=== PATIENT | male | born 1980 | race Caucasian/White ===

== ENCOUNTER 2017-06-25 06:55 | Emergency (ER) | payer MEDICARE, MEDICAID ==
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
[2017-06-25 08:29] LABS: ABSOLUTE BASOPHILS # (AUTO) 0.1 10^3/uL (0.0-0.2); ABSOLUTE EOSINOPHILS # (AUTO) 0.2 10^3/uL (0.0-0.6); ABSOLUTE LYMPHOCYTES (AUTO) 2.2 10^3/uL (0.5-4.7); ABSOLUTE MONOCYTES (AUTO) 0.5 10^3/uL (0.1-1.4); ABSOLUTE NEUT (AUTO) 3.8 10^3/uL (1.7-8.2); BASOPHILS % (AUTO) 0.8 % (0-2); EOSINOPHILS % (AUTO) 3.2 % (0-6); HEMATOCRIT 42.1 % (37.9-51.0); HEMOGLOBIN 14.4 g/dL (13.5-17.0); HGB HCT DIFFERENCE 1.1; LYMPHOCYTES % (AUTO) 32.8 % (13-45); MEAN CORPUSCULAR HEMOGLOBIN 27.6 pg (27.0-33.4); MEAN CORPUSCULAR HGB CONC 34.1 g/dL (32.0-36.0); MEAN CORPUSCULAR VOLUME 81 fl (80-97); RED BLOOD COUNT 5.21 10^6/uL (4.35-5.55); RED CELL DISTRIBUTION WIDTH 14.5 % (11.5-14.0); SEGMENTED NEUTROPHILS % (AUTO) 56.2 % (42-78); WHITE BLOOD COUNT 6.8 10^3/uL (4.0-10.5)
--- NOTE | 2017-06-25 08:44 | EKG REPORT ---
SEVERITY:- NORMAL ECG - SINUS RHYTHM : Confirmed by: Darell Beavers 25-Jun-2017 19:13:27
[2017-06-25 08:46] LABS: ALANINE AMINOTRANSFERASE 32 U/L (21-72); ALBUMIN 3.8 g/dL (3.5-5.0); ALKALINE PHOSPHATASE 82 U/L (38-126); ANION GAP 10 (5-19); ASPARTATE AMINO TRANSFERASE 26 U/L (17-59); BILIRUBIN,DIRECT 0.3 mg/dL (0.0-0.4); BILIRUBIN,TOTAL 0.3 mg/dL (0.2-1.3); BLOOD UREA NITROGEN 10 mg/dL (7-20); CALCIUM 9.2 mg/dL (8.4-10.2); CARBON DIOXIDE 25 mmol/L (22-30); CHLORIDE 107 mmol/L (98-107); CREATININE RESULT 1.26 mg/dL (0.52-1.25); GLUCOSE 91 mg/dL (75-110); POTASSIUM 4.1 mmol/L (3.6-5.0); SODIUM 141.9 mmol/L (137-145); TOTAL PROTEIN 6.2 g/dL (6.3-8.2)
[2017-06-25 08:55] LABS: ALCOHOL < 10 mg/dL (NONE DETECTED); VALPROIC ACID < 10.0 ug/mL (50.0-120.0)
[2017-06-25 09:02] LABS: APPEARANCE,URINE SLIGHTLY-CLOUDY; BILIRUBIN,URINE NEGATIVE (NEGATIVE); GLUCOSE, URINE NEGATIVE (NEGATIVE); KETONES,URINE TRACE mg/dL (NEGATIVE); LEUKOCYTE ESTERASE,URINE NEGATIVE (NEGATIVE); NITRITE,URINE NEGATIVE (NEGATIVE); PROTEIN,URINE 30 mg/dL (NEGATIVE); URINE SPECIFIC GRAVITY 1.032
[2017-06-25 09:09] LABS: BACTERIA,URINE 2+ /HPF; WBC,URINE RARE /HPF
[2017-06-25 09:11] LABS: URINE BARBITURATES SCREEN NEGATIVE; URINE METHADONE SCREEN NEGATIVE; URINE OPIATES LOW NEGATIVE; URINE PHENCYCLIDINE SCREEN NEGATIVE
[2017-06-25] MEDS ORDERED: OLANZAPINE 5 MG TABLET PO SCH (18:15)
[2017-06-25] MEDS ORDERED: BENZTROPINE MESYLATE 1 MG TABLET PO SCH (18:15)
--- NOTE | 2017-06-26 10:29 | ER Document Report ---
Doctor's Note Notes: 06/26/17 10:28 Patient has been seen and evaluated resting comfortably no acute distress. Laboratory values previous provider note and vital signs have been evaluated. Patient otherwise looks to be stable for disposition/transfer.
[2017-06-26] MEDS ORDERED: BENZTROPINE MESYLATE 1 MG TABLET PO ONE (11:30)
[2017-06-26] MEDS ORDERED: OLANZAPINE INJ/PF 10 MG SDV IM ONE (11:58)
[2017-06-26] MEDS ORDERED: DIPHENHYDRAMINE HCL 50 MG/ML VIAL IM ONE (11:58)
[2017-06-26 16:26] VITALS: BP 129/81
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
--- NOTE | 2017-06-26 18:50 | PSYCHOLOGICAL NOTE ---
Psych Note - Psych Note Psych Note: Patient is a 37 year old male in the ED on IVC for history of Bipolar and Schizophrenia, having been off medications for a year or longer, SI/HI, delusional thinking, and A/V hallucinations. Overnight nurse stated patient was calm and cooperative. Patient stated "I am pretty good" when asked how he was doing. He further stated "I am just relaxing." When this clinician went to inform patient about IVC status he politely stated "I don't feel like talking I' m just trying to lay here." A couple hours later patient walked out of his room , threatened another patient, was verbally aggressive and body language suggested he was angry per attending nurse. Diagnosis: 296.80 (F32.9) Unspecified Bipolar Related Disorder by History 298.9 (F29) Unspecified Schizophrenia Spectrum and Other Psychotic Disorder by History Institutionalized R/O 309.9 (F43.9) Unspecified Trauma and Stressor Related Disorder Impression/Plan: Recommendation to maintain IVC given patient's labile mood and aggression. Medication regimen was just started last evening. Coordinated care with [facility]. Consulted with Dr. Russell regarding the management and care of patient. ED Physician in agreement with recommendation.
[2017-06-27] MEDS ORDERED: BENZTROPINE MESYLATE 1 MG TABLET PO SCH (10:00)
== END 2017-06-26 16:20 ==
LOC: EDBD 06:55 → ER 06:55
DX: F20.9 Schizophrenia, unspecified (principal); R45.850 Homicidal ideations; R45.851 Suicidal ideations; E66.01 Morbid (severe) obesity due to excess calories; F31.9 Bipolar disorder, unspecified; F17.210 Nicotine dependence, cigarettes, uncomplicated
CPT/HCPCS: 93005; 99285; 96372; 36415; 80307 ×4; 85025; 80053; 81001; 80164; 93010; A9270 ×3; J1200

== ENCOUNTER 2017-10-26 19:09 | Emergency (ER) | payer MEDICARE, MEDICAID ==
[2017-10-26] MEDS ORDERED: OLANZAPINE 5 MG TABLET PO ONE (19:22)
[2017-10-26 20:39] LABS: ABSOLUTE EOSINOPHILS # (AUTO) 0.2 10^3/uL (0.0-0.6); ABSOLUTE LYMPHOCYTES (AUTO) 2.4 10^3/uL (0.5-4.7); ABSOLUTE MONOCYTES (AUTO) 0.4 10^3/uL (0.1-1.4); BASOPHILS % (AUTO) 0.7 % (0-2); EOSINOPHILS % (AUTO) 3.1 % (0-6); HEMATOCRIT 43.8 % (37.9-51.0); HEMOGLOBIN 14.6 g/dL (13.5-17.0); LYMPHOCYTES % (AUTO) 33.8 % (13-45); MEAN CORPUSCULAR HEMOGLOBIN 27.2 pg (27.0-33.4); MEAN CORPUSCULAR HGB CONC 33.3 g/dL (32.0-36.0); MEAN CORPUSCULAR VOLUME 82 fl (80-97); MONOCYTES % (AUTO) 5.5 % (3-13); PLATELET COUNT 297 10^3/uL (150-450); RED BLOOD COUNT 5.36 10^6/uL (4.35-5.55); RED CELL DISTRIBUTION WIDTH 14.4 % (11.5-14.0); SEGMENTED NEUTROPHILS % (AUTO) 56.9 % (42-78); TOTAL CELLS COUNTED % (AUTO) 100 %
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
[2017-10-26 20:44] LABS: APPEARANCE,URINE CLEAR; BILIRUBIN,URINE NEGATIVE (NEGATIVE); COLOR,URINE YELLOW; GLUCOSE, URINE NEGATIVE (NEGATIVE); KETONES,URINE NEGATIVE (NEGATIVE); LEUKOCYTE ESTERASE,URINE NEGATIVE (NEGATIVE); NITRITE,URINE NEGATIVE (NEGATIVE); PROTEIN,URINE NEGATIVE (NEGATIVE); URINE SPECIFIC GRAVITY 1.018; UROBILINOGEN,URINE NEGATIVE mg/dL (<2.0)
[2017-10-26 21:00] LABS: ALANINE AMINOTRANSFERASE 35 U/L (21-72); ALBUMIN 4.4 g/dL (3.5-5.0); ALCOHOL 77 mg/dL (NONE DETECTED); ALKALINE PHOSPHATASE 59 U/L (38-126); ANION GAP 12 (5-19); ASPARTATE AMINO TRANSFERASE 55 U/L (17-59); BILIRUBIN,DIRECT 0.2 mg/dL (0.0-0.4); BILIRUBIN,TOTAL 0.2 mg/dL (0.2-1.3); BLOOD UREA NITROGEN 13 mg/dL (7-20); CALCIUM 9.8 mg/dL (8.4-10.2); CARBON DIOXIDE 24 mmol/L (22-30); CHLORIDE 108 mmol/L (98-107); GLUCOSE 92 mg/dL (75-110); POTASSIUM 4.2 mmol/L (3.6-5.0); SODIUM 144.4 mmol/L (137-145); TOTAL PROTEIN 7.4 g/dL (6.3-8.2)
[2017-10-26 21:01] LABS: ACETAMINOPHEN < 10 ug/mL (10-30); SALICYLATE < 1.0 mg/dL (2.0-20.0); URINE AMPHETAMINES SCREEN NEGATIVE; URINE BARBITURATES SCREEN NEGATIVE; URINE BENZODIAZEPINES SCREEN NEGATIVE; URINE COCAINE SCREEN NEGATIVE; URINE MARIJUANA (THC) SCREEN NEGATIVE; URINE METHADONE SCREEN NEGATIVE; URINE PHENCYCLIDINE SCREEN NEGATIVE
--- NOTE | 2017-10-26 21:04 | EKG REPORT ---
SEVERITY:- NORMAL ECG - SINUS RHYTHM : Confirmed by: Darell Beavers 26-Oct-2017 21:03:14
--- NOTE | 2017-10-27 10:41 | ER Document Report ---
Doctor's Note Notes: 10/27/17 10:40 Patient is sleeping when I walk into the room, has a difficult time awakening, but did finally awaken, neurologically intact, when more awake states that he feels much better after the olanzapine and sleeping. States he does not really recall what happened last evening. Patient at this time is medically clear, stable for reevaluation by the behavioral health team.
[2017-10-27] MEDS ORDERED: CHLORPROMAZINE HCL 50 MG TABLET PO PRN (13:36)
[2017-10-27] MEDS ORDERED: BENZTROPINE MESYLATE 1 MG TABLET PO SCH (13:45)
[2017-10-27] MEDS ORDERED: OLANZAPINE 5 MG TABLET PO SCH (13:45)
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
[2017-10-27 18:50] VITALS: BP 133/90
== END 2017-10-27 18:00 ==
LOC: ER 19:09
DX: F20.9 Schizophrenia, unspecified (principal); R41.82 Altered mental status, unspecified
CPT/HCPCS: 93005; 99285; 36415; 80307 ×4; 85025; 80053; 81001; 93010; A9270